=== PATIENT | female | born 1985 | race American Indian/Alaskan Native ===

== ENCOUNTER 2017-12-02 22:00 | Emergency (ER) | payer MEDICARE ==
[2017-12-03] MEDS ORDERED: NACL 0.9% 1000 ML 1,000 ML IV ONE (00:11)
[2017-12-03] MEDS ORDERED: ZOFRAN IV ONE (00:12)
[2017-12-03 00:38] LABS: Basophils # (Auto) 0.1 K/mm3 (0.0-0.1); Basophils % (Auto) 0.6 % (0.0-1.8); Eosinophils % (Auto) 0.2 % (0.0-4.3); Lymphocytes # (Auto) 1.5 K/mm3 (1.2-5.4); Mean Corpuscular HGB Conc 36 % (30-34); Mean Corpuscular Hemoglobin 34 pg (28-32); Mean Corpuscular Volume 93 fl (79-97); Monocytes # (Auto) 0.5 K/mm3 (0.0-0.8); Monocytes % (Auto) 5.1 % (0.0-7.3); Platelet Count 268 K/mm3 (140-440); Red Blood Count 4.07 M/mm3 (3.65-5.03); Red Cell Distribution Width 13.2 % (13.2-15.2)
[2017-12-03 00:43] LABS: Hematocrit 37.8 % (30.3-42.9); Hemoglobin 13.7 gm/dl (10.1-14.3)
[2017-12-03 01:09] LABS: Alanine Aminotransferase 35 units/L (7-56); Albumin 4.5 g/dL (3.9-5); BUN/Creatinine Ratio 15; Blood Urea Nitrogen 9 mg/dL (7-17); Calcium 9.7 mg/dL (8.4-10.2); Hemolysis Index 3
[2017-12-03 05:46] LABS: Color,Urine Yellow (Yellow)
[2017-12-03 05:47] LABS: Bilirubin,Urine NEG (Negative); Blood,Urine NEG (Negative); Hyaline Casts,Urine 1 /LPF; Mucus,Urine FEW /HPF
[2017-12-03 06:46] VITALS: BP 109/71
--- NOTE | 2017-12-03 08:05 | Emergency Department Report ---
ED General Adult HPI - General Chief complaint: Abdominal Pain Stated complaint: N/V Time Seen by Provider: 12/03/17 07:10 Source: patient Mode of arrival: Ambulatory Limitations: No Limitations - History of Present Illness Initial comments: 31-year-old female with chief complaint of sore throat. She states that she had some vague lower abdominal pain which has resolved. She had nausea and vomiting which has resolved. She denies diarrhea. She denies fever or chills. She denies signs of GI bleeding. The abdominal pain was crampy and transient. She reports no dysuria and no vaginal discharge. She states that she had a negative HIV test within the last year. She reports no other medical history. She denies any sick contacts. -: hour(s) Location: abdomen Radiation: non-radiation Quality: other (crampy) Consistency: intermittent, now resolved Improves with: none Worsens with: none Associated Symptoms: denies other symptoms Treatments Prior to Arrival: none - Related Data Previous Rx's Medication Instructions Recorded Last Taken Type Ondansetron [Zofran Odt] 4 mg PO Q6H PRN #7 tab.rapdis 12/03/17 Unknown Rx traMADol [Ultram] 50 mg PO Q6HR PRN #10 tablet 12/03/17 Unknown Rx Allergies Allergy/AdvReac Type Severity Reaction Status Date / Time No Known Allergies Allergy Unverified 12/03/17 00:11 ED Review of Systems ROS: Stated complaint: N/V Other details as noted in HPI Constitutional: denies: chills, fever Eyes: denies: eye pain, eye discharge, vision change ENT: throat pain. denies: ear pain Respiratory: denies: cough, shortness of breath, wheezing Cardiovascular: denies: chest pain, palpitations Endocrine: no symptoms reported Gastrointestinal: abdominal pain, nausea, vomiting. denies: diarrhea Genitourinary: denies: urgency, dysuria, discharge Musculoskeletal: denies: back pain, joint swelling, arthralgia Skin: denies: rash, lesions Neurological: denies: headache, weakness, paresthesias Psychiatric: denies: anxiety, depression Hematological/Lymphatic: denies: easy bleeding, easy bruising ED Past Medical Hx - Past Medical History Previous Medical History?: No - Surgical History Past Surgical History?: No - Social History Smoking Status: Current Every Day Smoker Substance Use Type: None - Medications Home Medications: Home Medications Medication Instructions Recorded Confirmed Last Taken Type Ondansetron [Zofran Odt] 4 mg PO Q6H PRN #7 tab.rapdis 12/03/17 Unknown Rx traMADol [Ultram] 50 mg PO Q6HR PRN #10 tablet 12/03/17 Unknown Rx ED Physical Exam - General Limitations: No Limitations General appearance: alert, in no apparent distress - Head Head exam: Present: atraumatic, normocephalic - Eye Eye exam: Present: normal appearance, PERRL, EOMI. Absent: scleral icterus - ENT ENT exam: Present: mucous membranes moist - Neck Neck exam: Present: normal inspection. Absent: tenderness, meningismus - Respiratory Respiratory exam: Present: normal lung sounds bilaterally. Absent: respiratory distress - Cardiovascular Cardiovascular Exam: Present: regular rate, normal rhythm. Absent: systolic murmur, diastolic murmur, rubs, gallop - GI/Abdominal GI/Abdominal exam: Present: soft, normal bowel sounds. Absent: distended, tenderness, guarding, rebound, rigid, organomegaly, bruit, pulsatile mass, hernia - Extremities Exam Extremities exam: Present: normal inspection - Back Exam Back exam: Present: normal inspection - Neurological Exam Neurological exam: Present: alert, oriented X3, CN II-XII intact. Absent: motor sensory deficit - Psychiatric Psychiatric exam: Present: normal affect, normal mood - Skin Skin exam: Present: warm, dry, intact, normal color. Absent: rash ED Course Vital Signs 12/02/17 12/03/17 23:58 06:44 Temperature 98.1 F 98.2 F Pulse Rate 121 H 76 Respiratory 18 18 Rate Blood Pressure 132/89 Blood Pressure 109/71 [Right] O2 Sat by Pulse 98 100 Oximetry - Reevaluation(s) Reevaluation #1: Patient is resting comfortably. She is essentially asymptomatic now. Potassium was slightly low she will be given some prior to discharge. It would appear likely she has a viral illness. He is appropriate for outpatient referral and management. 12/03/17 08:02 ED Medical Decision Making - Lab Data Result diagrams: 12/03/17 00:17 12/03/17 00:17 Laboratory Results - last 24 hr 12/03/17 12/03/17 12/03/17 00:17 00:17 00:17 WBC 9.6 RBC 4.07 Hgb 13.7 Hct 37.8 MCV 93 MCH 34 H MCHC 36 H RDW 13.2 Plt Count 268 Lymph % (Auto) 16.0 Henry % (Auto) 5.1 Eos % (Auto) 0.2 Baso % (Auto) 0.6 Lymph # 1.5 Henry # 0.5 Eos # 0.0 Baso # 0.1 Seg Neutrophils % 78.1 H Seg Neutrophils # 7.5 Sodium 136 L Potassium 3.4 L Chloride 99.5 Carbon Dioxide 21 L Anion Gap 19 BUN 9 Creatinine 0.6 L Estimated GFR > 60 BUN/Creatinine Ratio 15 Glucose 125 H Calcium 9.7 Total Bilirubin 0.50 AST 50 H ALT 35 Alkaline Phosphatase 76 Total Protein 8.0 Albumin 4.5 Albumin/Globulin Ratio 1.3 HCG, Qual Negative Urine Color Urine Turbidity Urine pH Ur Specific [place] Urine Protein Urine Glucose (UA) Urine Ketones Urine Blood Urine Nitrite Urine Bilirubin Urine Urobilinogen Ur Leukocyte Esterase Urine WBC (Auto) Urine RBC (Auto) U Epithel Cells (Auto) Hyaline Casts Urine Mucus Group A Strep Rapid 12/03/17 12/03/17 Unknown Unknown WBC RBC Hgb Hct MCV MCH MCHC RDW Plt Count Lymph % (Auto) Henry % (Auto) Eos % (Auto) Baso % (Auto) Lymph # Henry # Eos # Baso # Seg Neutrophils % Seg Neutrophils # Sodium Potassium Chloride Carbon Dioxide Anion Gap BUN Creatinine Estimated GFR BUN/Creatinine Ratio Glucose Calcium Total Bilirubin AST ALT Alkaline Phosphatase Total Protein Albumin Albumin/Globulin Ratio HCG, Qual Urine Color Yellow Urine Turbidity Clear Urine pH 8.0 H Ur Specific [place] 1.019 Urine Protein 30 mg/dl Urine Glucose (UA) Neg Urine Ketones Tr Urine Blood Neg Urine Nitrite Neg Urine Bilirubin Neg Urine Urobilinogen 2.0 Ur Leukocyte Esterase Neg Urine WBC (Auto) 7.0 H Urine RBC (Auto) 5.0 U Epithel Cells (Auto) 6.0 Hyaline Casts 1 Urine Mucus Few Group A Strep Rapid Negative Critical care attestation.: If time is entered above; I have spent that time in minutes in the direct care of this critically ill patient, excluding procedure time. ED Disposition Clinical Impression: Viral illness, Sore throat, Hypokalemia Abdominal pain Qualifiers: Abdominal location: left lower quadrant Qualified Code(s): R10.32 - Left lower quadrant pain Disposition: - TO HOME OR SELFCARE Is pt being admited?: No Does the pt Need Aspirin: No Condition: Stable Instructions: Abdominal Pain (ED), Pharyngitis (ED), Viral Syndrome (ED), Hypokalemia (ED) Additional Instructions: Return to the emergency department any acute change or worsening. Light diet and advance as tolerated. Adequate fluids. Rx for nausea and for sore throat. It looks like you have a viral illness at this point. Follow up with her primary care physician or clinic. Prescriptions: Ondansetron [Zofran Odt] 4 mg PO Q6H PRN #7 tab.rapdis PRN Reason: Nausea traMADol [Ultram] 50 mg PO Q6HR PRN #10 tablet PRN Reason: Pain Referrals: PRIMARY CARE, [Primary Care Provider] - 3-5 Days [facility] [Provider Group] - 3-5 Days Time of Disposition: 08:07
== END 2017-12-03 08:15 | disposition home or self-care (01) ==
LOC: ED 22:00
DX: B34.9 Viral infection, unspecified (principal); E87.6 Hypokalemia; R10.32 Left lower quadrant pain; F17.200 Nicotine dependence, unspecified, uncomplicated
CPT/HCPCS: 36415; 80053; 81001; 84703; 85025; 87116; 87430; 96361; 96374; 99283; J2405; J7030